=== PATIENT | male | born 2000 | race Caucasian/White ===

== ENCOUNTER 2021-04-30 12:33 | Emergency (ER) | payer MEDICAID ==
[~2021-04-30] VITALS: Ht 177.8 cm; Wt 81.6 kg
[2021-04-30 12:45] VITALS: BP 123/69
--- NOTE | 2021-04-30 12:47 | NUR ---
PT TO AWAIT IN LOBBY
--- NOTE | 2021-04-30 13:06 | NUR ---
PT AMBULATED TO PSYCHIATRIC
--- NOTE | 2021-04-30 13:11 | NUR ---
CYDNEY DODD EXAMINING PT
[2021-04-30] MEDS ORDERED: PRED20TA5 PO (13:20)
[2021-04-30] MEDS ORDERED: DIPH25TA53 PO (13:20)
--- NOTE | 2021-04-30 13:30 | NUR ---
PT WAS SEEN AND EVALUATED BY DR DODD. NO NURSING INTERVENTIONS PROVIDED.
[2021-04-30 13:31] VITALS: BP 123/69
--- NOTE | 2021-04-30 13:31 | NUR ---
Patient discharged with v/s stable. Written and verbal after care instructions ABOUT MEDICATIONS AND PRURITIS given and explained. Patient alert, oriented and verbalized understanding of instructions. Ambulatory with steady gait. All questions addressed prior to discharge. ID band removed. Patient advised to follow up with PMD. Rx of DIPHENHYDRAMINE HCL AND PREDNISONE given. Patient educated on indication of medication including possible reaction and side effects. Opportunity to ask questions provided and answered.
== END 2021-04-30 13:30 | disposition home or self-care (01) ==
LOC: MED 12:33
DX: R21 Rash and other nonspecific skin eruption (principal); L29.9 Pruritus, unspecified; F17.210 Nicotine dependence, cigarettes, uncomplicated; Z71.6 Tobacco abuse counseling; Z79.899 Other long term (current) drug therapy
CPT/HCPCS: 99283

== ENCOUNTER 2021-06-17 15:52 | Emergency (ER) | payer MEDICAID ==
[~2021-06-17] VITALS: Ht 175.3 cm; Wt 83.9 kg
[~2021-06-17 15:52] MED LIST: DIPH25TA53 PO; PRED20TA5 PO
[2021-06-17 15:58] VITALS: BP 138/75
--- NOTE | 2021-06-17 16:02 | NUR ---
PT TO AWAIT IN LOBBY
--- NOTE | 2021-06-17 16:35 | NUR ---
PT AMBULATED TO BED
--- NOTE | 2021-06-17 16:57 | NUR ---
DR. STANLEY BEDSIDE EVALUATING PT
--- NOTE | 2021-06-17 17:03 | NUR ---
20 MALE WITH C/O EYE PROBLEMS SINCE FRIDAY. REPORT BLURRY VISION AND REDNESS, DENIES ANY DISCHARGE. PT STATES "MIGRAINE" ACHING 10/10 PAIN. RT EYE 20/40 AND LT EYE 20/20. PT STATES HE IS EXPERINICING SENSITIVITY TO LIGHT. MEDHX: DENIES NKA
[2021-06-17] MEDS ORDERED: TETRACAINE HCL/PF 0.5% OPTH 4 ML BTL OP ONE (17:05)
[2021-06-17] MEDS ORDERED: FLUORESCEIN OPTH STRIP 1 MG OP ONE (17:05)
[2021-06-17] MEDS ORDERED: TOMOMETER 1 DEV DEV MC ONE (17:06)
[2021-06-17] MEDS ORDERED: OFLO5SOL2 OP (17:19)
[2021-06-17 17:27] VITALS: BP 138/75
--- NOTE | 2021-06-17 17:28 | NUR ---
Patient discharged with v/s stable. Written and verbal after care instructions given and explained. Patient alert, oriented and verbalized understanding of instructions. Ambulatory with steady gait. All questions addressed prior to discharge. ID band removed. Patient advised to follow up with PMD. Rx of OFLOXACIN given. Patient educated on indication of medication including possible reaction and side effects. Opportunity to ask questions provided and answered.
== END 2021-06-17 17:28 | disposition home or self-care (01) ==
LOC: MED 15:52
DX: H10.9 Unspecified conjunctivitis (principal); R51.9 Headache, unspecified; F12.90 Cannabis use, unspecified, uncomplicated; Z79.899 Other long term (current) drug therapy
CPT/HCPCS: 99283

== ENCOUNTER 2022-05-15 19:36 | Emergency (ER) | payer MEDICAID, OTHER ==
[~2022-05-15 19:36] MED LIST changes: +OFLO5SOL2 OP
--- NOTE | 2022-05-15 20:30 | NUR ---
CALLED TO TRIAGE, NO ANSWER
--- NOTE | 2022-05-15 20:45 | NUR ---
CALLED TO TRIAGE, NO ANSWER
--- NOTE | 2022-05-15 21:00 | NUR ---
CALLED TO TRIAGE, NO ANSWER. LWBS
== END 2022-05-15 20:30 | disposition left against medical advice (07) ==
LOC: MED 19:36
DX: H92.09 Otalgia, unspecified ear (principal); Z53.21 Procedure and treatment not carried out due to patient leaving prior to being seen by health care provider

== ENCOUNTER 2022-05-19 09:31 | Emergency (ER) | payer OTHER ==
[~2022-05-19] VITALS: Ht 172.7 cm; Wt 81.2 kg
[2022-05-19 09:34] VITALS: BP 130/88
--- NOTE | 2022-05-19 10:05 | NUR ---
21/M PRESENTS TO ED WITH C/O BILATERAL EAR PAIN AND HEARING LOSS ON LEFT EAR X2 DAYS. REPORTS USING OTC EAR DROPS WITH MINOR RELIEF. DENIES COUGH, FEVERS, CHILLS.
[2022-05-19] MEDS ORDERED: SUD30 PO (10:19)
[2022-05-19] MEDS ORDERED: AMOX500C25 PO (10:19)
[2022-05-19] MEDS ORDERED: [UNRECOGNIZED DRUG - CODE] PO (10:19)
--- NOTE | 2022-05-19 10:38 | NUR ---
Patient discharged with v/s stable. Written and verbal after care instructions given and explained. Patient alert, oriented and verbalized understanding of instructions. Ambulatory with steady gait. All questions addressed prior to discharge. ID band removed. Patient advised to follow up with PMD. Rx of AMOXICILLIN, IBUPROFEN AND SUDAFED given. Patient educated on indication of medication including possible reaction and side effects. Opportunity to ask questions provided and answered.
== END 2022-05-19 10:38 | disposition home or self-care (01) ==
LOC: MED 09:31
DX: H66.91 Otitis media, unspecified, right ear (principal)
CPT/HCPCS: 99283

== ENCOUNTER 2022-10-07 19:03 | Emergency (ER) | payer OTHER ==
[~2022-10-07] VITALS: Ht 170.2 cm; Wt 80.7 kg
[~2022-10-07 19:03] MED LIST changes: +AMOX500C25 PO; +SUD30 PO; +[UNRECOGNIZED DRUG - CODE] PO
[2022-10-07 19:57] VITALS: BP 117/77
[2022-10-07 20:00] VITALS: BP 117/77
--- NOTE | 2022-10-07 20:02 | NUR ---
PT TO LOBBY
--- NOTE | 2022-10-07 20:35 | NUR ---
ER EXAMINING PT
[2022-10-07] MEDS ORDERED: DEXAMETHASONE 4 MG TAB PO ONE (20:45)
[2022-10-07] MEDS ORDERED: BENZ200C4 PO (20:48)
[2022-10-07] MEDS ORDERED: FLONAS NS (20:48)
[2022-10-07] MEDS ORDERED: KETOROLAC 15 MG/ML VIAL IM ONE (20:50)
--- NOTE | 2022-10-07 21:30 | NUR ---
Patient discharged . NO Written and verbal after care instructions given .
[2022-10-07] MEDS ORDERED: KETOROLAC 15 MG/ML VIAL ONE (22:20)
[2022-10-07] MEDS ORDERED: DEXAMETHASONE 4 MG TAB ONE (22:20)
== END 2022-10-07 21:30 | disposition home or self-care (01) ==
LOC: MED 19:03
DX: B34.9 Viral infection, unspecified (principal); H92.03 Otalgia, bilateral; R05.9 Cough, unspecified; Z79.899 Other long term (current) drug therapy
CPT/HCPCS: 99283; J1885

== ENCOUNTER 2023-11-24 14:08 | Emergency (ER) | payer OTHER ==
[~2023-11-24] VITALS: Ht 177.8 cm; Wt 79.4 kg
[~2023-11-24 14:08] MED LIST changes: +BENZ200C4 PO; +FLONAS NS; +OFLO5DRO2 OP; -OFLO5SOL2 OP
[2023-11-24 14:26] VITALS: BP 133/84; PULSE 63; RESP 17; TEMP 97.6; O2SAT 98
[2023-11-24] MEDS: PROPARACAINE 0.5% OPTH 15 ML BTL OP ONE (15:47)
[2023-11-24] MEDS: FLUORESCEIN OPTH STRIP 1 MG OP ONE (15:47)
[2023-11-24] MEDS ORDERED: ERYT5OIN51 BOTH EYES (16:03)
== END 2023-11-24 16:40 | disposition home or self-care (01) ==
LOC: MED 14:08
DX: T15.02XA Foreign body in cornea, left eye, initial encounter (principal); T15.01XA Foreign body in cornea, right eye, initial encounter; Z79.899 Other long term (current) drug therapy; Z79.1 Long term (current) use of non-steroidal anti-inflammatories (NSAID); Z79.2 Long term (current) use of antibiotics; X58.XXXA Exposure to other specified factors, initial encounter; Y92.89 Other specified places as the place of occurrence of the external cause; Y93.89 Activity, other specified; Y99.8 Other external cause status
CPT/HCPCS: 65220; 99284

== ENCOUNTER 2023-12-01 13:32 | Emergency (ER) | payer OTHER ==
[~2023-12-01] VITALS: Ht 175.3 cm; Wt 81.6 kg
[~2023-12-01 13:32] MED LIST changes: +ERYT5OIN51 BOTH EYES
[2023-12-01 13:34] VITALS: BP 138/78; PULSE 60; RESP 17; TEMP 99; O2SAT 100
[2023-12-01] MEDS ORDERED: LIDOCAINE MPF 1% 10 MG/ML VIAL INJ ONE (14:00)
[2023-12-01 14:06] VITALS: BP 116/71; PULSE 53; RESP 17; TEMP 99; O2SAT 100
[2023-12-01] MEDS ORDERED: BACI-418 TP (14:48)
== END 2023-12-01 14:55 | disposition home or self-care (01) ==
LOC: MED 13:32
DX: S51.811A Laceration without foreign body of right forearm, initial encounter (principal); X58.XXXA Exposure to other specified factors, initial encounter; Y93.89 Activity, other specified; Y92.89 Other specified places as the place of occurrence of the external cause; Y99.8 Other external cause status
CPT/HCPCS: 12002; 99282; J2001

== ENCOUNTER 2024-04-04 15:59 | Emergency (ER) | payer OTHER ==
[~2024-04-04] VITALS: Ht 175.3 cm; Wt 75.3 kg
[~2024-04-04 15:59] MED LIST changes: +BACI-418 TP
[2024-04-04 16:12] VITALS: BP 123/74; PULSE 91; RESP 20; TEMP 98.3; O2SAT 100
[2024-04-04 16:39] VITALS: BP 118/77; PULSE 84; RESP 19; TEMP 98; O2SAT 99
== END 2024-04-04 16:39 | disposition home or self-care (01) ==
LOC: MED 15:59
DX: S31.114A Laceration without foreign body of abdominal wall, left lower quadrant without penetration into peritoneal cavity, initial encounter (principal); S71.011A Laceration without foreign body, right hip, initial encounter; Z98.890 Other specified postprocedural states; Z79.1 Long term (current) use of non-steroidal anti-inflammatories (NSAID); Z79.2 Long term (current) use of antibiotics; Z79.899 Other long term (current) drug therapy; V29.99XA Rider (driver) (passenger) of other motorcycle injured in unspecified traffic accident, initial encounter; Y93.89 Activity, other specified; Y92.89 Other specified places as the place of occurrence of the external cause; Y99.8 Other external cause status
CPT/HCPCS: 99281